=== PATIENT | female | born 1975 | race African-American/Black ===

== ENCOUNTER 2016-06-13 10:46 | Emergency (ER) | payer OTHER ==
[~2016-06-13] VITALS: Ht 147.3 cm; Wt 54.0 kg
[~2016-06-13 10:46] MED LIST: TYLENOL EXTRA500 MG ORAL
[2016-06-13] MEDS ORDERED: ASPIR 8181 MG ORAL (11:03)
[2016-06-13] MEDS ORDERED: ZANTAC150 MG ORAL (11:04)
[2016-06-13] MEDS ORDERED: OMEPRAZOLE10 M1 ORAL (11:04)
[2016-06-13] MEDS ORDERED: FLONASE ALLERG9.9 ML NS (11:04)
--- NOTE | 2016-06-13 11:23 | Emergency Room Report ---
History of Present Illness General Chief Complaint: Chest Pain Source: Patient Present Illness HPI Patient presents with complaints of cough and congestion Ongoing for the past several days she has noticed wheezing previously as well After the coughing and congestion she has noted anterior left upper chest pain Sounds to be related with the cough denies any pleurisy denies any abdominal pain Denies any fevers or chills denies recent travel Allergies: Coded Allergies: GABAPENTIN (Verified Allergy, Intermediate, 02/24/16) IBUPROFEN (Verified Allergy, Intermediate, 02/24/16) METRONIDAZOLE (Verified Allergy, Intermediate, 02/24/16) Patient History Past Medical History: see triage record Pertinent Family History: none Last Menstrual Period: on depo shot Now: No : 0 Para: 0 Reviewed Nursing Documentation: PMH: Agreed, PSxH: Agreed Review of Systems All Other Systems: negative except mentioned in HPI Physical Exam Vital Signs Date Time Temp Pulse Resp B/P Pulse Ox O2 Delivery O2 Flow Rate FiO2 06/13/16 10:57 98.1 74 18 124/82 100 Room Air Sp02 EP Interpretation: reviewed, normal General Appearance: well appearing, no apparent distress Head: normocephalic, atraumatic Eyes: bilateral eye EOMI, bilateral eye PERRL ENT: hearing grossly normal, normal pharynx, TMs + canals normal, uvula midline Neck: full range of motion, supple, no meningismus, no bony tend Respiratory: lungs clear, normal breath sounds, no rhonchi, no respiratory distress, no retraction, no accessory muscle use Cardiovascular #1: normal peripheral pulses, regular rate, rhythm, no edema, no gallop, no JVD, no murmur Gastrointestinal: normal bowel sounds, non tender, soft, no mass, no organomegaly, non-distended, no guarding, no hernia, no pulsatile mass, no rebound Genitourinary: no CVA tenderness Musculoskeletal: normal inspection Neurologic: oriented x3, responsive, insights strategist III-XII nml as tested, motor strength/ tone normal, sensory intact Psychiatric: mood/affect normal Skin: normal color, no rash, warm/dry, palpation normal Lymphatic: normal inspection, no adenopathy Medical Decision Making Diagnostic Impression: Primary Impression: Chest pain Additional Impression: URI (upper respiratory infection) ER Course Patient appears to have findings in line with URI symptoms Given her presentation imaging study was obtained along with breathing treatment she does feel significantly better after this At the time of disposition the patient also stated that she had noted some vaginal discharge previously She is sexually active Denies any fevers or chills I did recommend close followup with [facility] patient was covered for PID/ pathology And stable for close outpatient followup EKG Diagnostic Results Rate: normal Rhythm: NSR ST Segments: no acute changes Rhythm Strip Diag. Results EP Interpretation: yes Rate: 74 Rhythm: NSR, no PVC's, no ectopy Chest X-Ray Diagnostic Results EP Interpretation: Yes Findings: no consolidation, no effusion, no pneumothorax Number of Views: 1 Last Vital Signs Date Time Temp Pulse Resp B/P Pulse Ox O2 Delivery O2 Flow Rate FiO2 06/13/16 11:16 74 18 Room Air 06/13/16 10:57 98.1 124/82 100 Status: improved Disposition: HOME, SELF-CARE Condition: Improved Scripts Doxycycline Hyclate* (VIBRAMYCIN*) 100 Mg Capsule 100 MG ORAL EVERY 12 HOURS, #14 CAP 0 Refills Prov: TIMUR DAVILA D.O. 06/13/16 Promethazine HCl/Codeine (Prometh-Codein 6.25-10 mg/5 ml) 5 Ml Syrup 5 ML PO QHS for 5 Days, ML Prov: TIMUR DAVILA D.O. 06/13/16 Azithromycin* (ZITHROMAX*) 250 Mg Tablet 250 MG ORAL DAILY, #6 TAB 0 Refills Take two tablets by mouth today, then take one tablet by mouth daily for four days Prov: TIMUR DAVILA D.O. 06/13/16 Additional Instructions: Patient is provided with the discharge instructions notified to follow up with primary doctor in the next 2-3 days otherwise return to the er with any worsening symptoms. TIMUR DAVILA D.O. Jun 13, 2016 11:23
[2016-06-13] MEDS ORDERED: Albuterol ud Inhalation HHN ONE (11:30)
--- NOTE | 2016-06-13 12:11 | Diagnostic Imaging Report ---
Indication: Chest Pain Comparison: None A single view chest radiograph was obtained. Findings: Cardiomediastinal appearance is within normal limits for age. Pulmonary vascularity is appropriate. The diaphragmatic contour is smooth and costophrenic angles are sharp. No pleural effusions are identified. The bones are unremarkable. Impression: No acute findings
[2016-06-13] MEDS ORDERED: PROMETH-CODEIN 65 ML PO (12:24)
[2016-06-13] MEDS ORDERED: AZITHROMYCIN250 MG ORAL (12:24)
[2016-06-13 13:38] VITALS: BP 101/47
[2016-06-13 13:56] VITALS: BP 101/47
[2016-06-13] MEDS ORDERED: VIBRAMYCIN100 MG ORAL (14:00)
[2016-06-13] MEDS ORDERED: Lidocaine 1% MPF 10mg/ml 5ml ONE (14:08)
--- NOTE | 2016-07-26 08:29 | Cardiology Report ---
APPROVED REPORT EKG Measurement Heart [id number] Normal sinus rhythm Possible Left atrial enlargement Borderline ECG
== END 2016-06-13 14:13 | disposition home or self-care (01) ==
LOC: EMR 11:34
DX: R05 Cough (principal)
CPT/HCPCS: 71010; 93005; 94640; 94664; 96372; 99283; J0696

== ENCOUNTER 2016-12-05 18:26 | Emergency (ER) | payer OTHER ==
[~2016-12-05] VITALS: Ht 144.8 cm; Wt 55.8 kg
[~2016-12-05 18:26] MED LIST changes: +ASPIR 8181 MG ORAL; +AZITHROMYCIN250 MG ORAL; +FLONASE ALLERG9.9 ML NS; +OMEPRAZOLE10 M1 ORAL; +PROMETH-CODEIN 65 ML PO; +VIBRAMYCIN100 MG ORAL; +ZANTAC150 MG ORAL
[2016-12-05 18:38] VITALS: BP 140/87
--- NOTE | 2016-12-05 20:07 | Emergency Room Report ---
History of Present Illness General Chief Complaint: Upper Extremity Injury Source: Patient Present Illness HPI 41-year-old female presents to the emergency department complaining of 8/10 in severity lateral right elbow pain x2 days with mild swelling. Patient states she cannot all whether or not she hit her elbow on anything. Patient denies bruising erythema. Patient reports pain with full extension as well as clicking sensation. Patient denies open lesions. Patient denies nausea, vomiting, fevers, chills. Denies numbness tingling or loss of sensation or gross motor movements of the extremities, incontinence of bowel or bladder. Denies CP, Palpitations, LOC, AMS, dizziness, Changes in Vision, Sensation, paresthesias, or a sudden severe headache. Allergies: Coded Allergies: GABAPENTIN (Verified Allergy, Intermediate, 02/24/16) IBUPROFEN (Verified Allergy, Intermediate, 02/24/16) METRONIDAZOLE (Verified Allergy, Intermediate, 02/24/16) Patient History Past Medical History: see triage record Past Surgical History: none Pertinent Family History: none Last Menstrual Period: 11/03/2016 Now: No Immunizations: UTD Reviewed Nursing Documentation: PMH: Agreed, PSxH: Agreed Review of Systems All Other Systems: negative except mentioned in HPI Physical Exam Vital Signs Date Time Temp Pulse Resp B/P Pulse Ox O2 Delivery O2 Flow Rate FiO2 12/05/16 18:32 98.1 85 16 140/87 98 Room Air Sp02 EP Interpretation: reviewed, normal General Appearance: no apparent distress, alert, GCS 15, non-toxic Head: normocephalic, atraumatic Eyes: bilateral eye PERRL, bilateral eye normal inspection ENT: hearing grossly normal, normal pharynx, no angioedema, normal voice Neck: full range of motion, supple/symm/no masses Respiratory: lungs clear, normal breath sounds, speaking full sentences Cardiovascular #1: regular rate, rhythm, no edema, normal capillary refill Musculoskeletal: back normal, gait/station normal, normal range of motion, tender - TTP and swelling to lateral left elbow, no bruises, no erythema, no increased temperature to palpation, FROM with mild pain, no clicking palpated, no obvious deformity Neurologic: alert, oriented x3, responsive, motor strength/tone normal, sensory intact, speech normal Psychiatric: judgement/insight normal, memory normal, mood/affect normal Skin: normal color, no rash, warm/dry, well hydrated Medical Decision Making PA Attestation Dr. soto is my supervising Physician whom patient management has been discussed with. Diagnostic Impression: Primary Impression: Contusion Qualified Codes: S50.02XA - Contusion of left elbow, initial encounter Additional Impression: Elbow pain, left ER Course 41-year-old female presents to the emergency department complaining of 8/10 in severity lateral right elbow pain x2 days with mild swelling. Patient states she cannot all whether or not she hit her elbow on anything. Patient denies bruising erythema. Patient reports pain with full extension as well as clicking sensation. Patient denies open lesions. Patient denies nausea, vomiting, fevers, chills. Denies numbness tingling or loss of sensation or gross motor movements of the extremities, incontinence of bowel or bladder. Denies CP, Palpitations, LOC, AMS, dizziness, Changes in Vision, Sensation, paresthesias, or a sudden severe headache. Ddx considered but are not limited to Fracture, dislocation, contusion, Sprain/ Strain/Spasm, Epidural abscess, Neoplastic mets. Vital signs: are WNL, pt. is afebrile H&PE are most consistent with musculoskeletal injury will perform imaging to r/ o fractures/dislocations. ORDERS: - X-ray Left Elbow 3 views - negative for fx, Dislocation, or significant soft tissue injury, per preliminary read in ED by Dr. Mendoza - interpretation is scribed by PA. ED INTERVENTIONS: - Left arm Sling applied by civil laboratory technician. Pt. remains neurovascularly intact. DISCHARGE: At this time pt. is stable for d/c to home. Will provide printed patient care instructions, and any necessary prescriptions. Care plan and follow up instructions have been discussed with the patient prior to discharge. Last Vital Signs Date Time Temp Pulse Resp B/P Pulse Ox O2 Delivery O2 Flow Rate FiO2 12/05/16 18:38 98.1 16 140/87 98 Room Air 12/05/16 18:32 85 Disposition: HOME, SELF-CARE Condition: Stable Scripts Cyclobenzaprine Hcl* (FLEXERIL*) 10 Mg Tablet 10 MG ORAL THREE TIMES A DAY for 7 Days, #21 TAB Prov: Dina Mitchell P.A. 12/05/16 Naproxen* (NAPROXEN*) 500 Mg Tablet 500 MG ORAL TWICE A DAY, #20 TAB Prov: Dina Mitchell 12/05/16 Referrals: [facility],REFERRING (PCP) Patient Instructions: CONTUSION, Upper Extremity Additional Instructions: Take medications as directed. Follow up with a Primary Care Provider in 3-5 days, even if your symptoms have resolved. --Please review list of primary care clinics, if you do not already have a primary care provider Return sooner to ED if new symptoms occur, or current symptoms become worse. - Please note that this Emergency Department Report was dictated using [employer] records analyst technology software, occasionally this can lead to erroneous entry secondary to interpretation by the dictation equipment. Dina Mitchell Dec 05, 2016 20:07
[2016-12-05] MEDS ORDERED: CYCLOBENZAPRINE10 MG ORAL (20:20)
[2016-12-05] MEDS ORDERED: NAPROXEN500 M2 ORAL (20:20)
[2016-12-05 20:30] VITALS: BP 145/81
--- NOTE | 2016-12-06 09:24 | Diagnostic Imaging Report ---
Indications: Left elbow pain Technique: 3 views of the left elbow Findings: Comparison: None No fracture, dislocation, lytic destruction, periosteal reaction, joint space widening or effusion, surrounding soft tissue abnormality, or other acute changes demonstrated. No deformity, alignment abnormality, arthritic change, soft tissue calcification, or other chronic changes demonstrated. IMPRESSION: Negative left elbow series.
== END 2016-12-05 20:30 | disposition home or self-care (01) ==
LOC: EMR 19:00
DX: S50.02XA Contusion of left elbow, initial encounter (principal); X58.XXXA Exposure to other specified factors, initial encounter; Y92.9 Unspecified place or not applicable; Z88.6 Allergy status to analgesic agent; Z88.8 Allergy status to other drugs, medicaments and biological substances
CPT/HCPCS: 29240; 99284

== ENCOUNTER 2017-04-29 13:45 | Emergency (ER) | payer OTHER ==
[~2017-04-29] VITALS: Ht 144.8 cm; Wt 58.1 kg
[~2017-04-29 13:45] MED LIST changes: +CYCLOBENZAPRINE10 MG ORAL; +NAPROXEN500 M2 ORAL
[2017-04-29 14:16] VITALS: BP 117/82
[2017-04-29] MEDS ORDERED: OCUFLOX5 ML LEFT EYE (14:16)
[2017-04-29] MEDS ORDERED: KEFLEX500 MG ORAL (14:16)
[2017-04-29 14:20] VITALS: BP 117/82
--- NOTE | 2017-04-29 15:18 | Emergency Room Report ---
History of Present Illness General Chief Complaint: Eye Problems Source: Patient Present Illness HPI 41-year-old female presents ED for violation. Patient notes pain and swelling to the left lower eyelid. Started approximately one month ago. Was seen by PMD. Was prescribed antibiotics and states that symptoms overall improved but have persisted. Patient notes a nodular swelling to the inside of her left lower eyelid. Patient was given ophthalmology referral but has not yet seen the flake miller helper. Patient denies any pain but states that she noted some discharge from her lower eyelid a few days ago. Denies any photophobia or blurry vision. No other aggravating relieving factors. Denies any other associated symptoms Allergies: Coded Allergies: GABAPENTIN (Verified Allergy, Intermediate, 02/24/16) IBUPROFEN (Verified Allergy, Intermediate, 02/24/16) METRONIDAZOLE (Verified Allergy, Intermediate, 02/24/16) Patient History Past Medical History: none Past Surgical History: none Pertinent Family History: none Social History: Denies: smoking, alcohol use, drug use Last Menstrual Period: Depo Now: No Immunizations: UTD Reviewed Nursing Documentation: PMH: Agreed, PSxH: Agreed Review of Systems All Other Systems: negative except mentioned in HPI Physical Exam Vital Signs Date Time Temp Pulse Resp B/P (MAP) Pulse Ox O2 Delivery O2 Flow Rate FiO2 04/29/17 13:54 98.6 79 16 117/82 97 Room Air Sp02 EP Interpretation: reviewed, normal General Appearance: no apparent distress, alert, GCS 15, non-toxic Head: normocephalic Eyes: left eye lid inflammation - nodular swelling to inside of L lower eyelid , bilateral eye normal inspection, bilateral eye PERRL, bilateral eye EOMI ENT: hearing grossly normal, normal pharynx, no angioedema, normal voice Neck: normal inspection Respiratory: normal inspection Cardiovascular #1: normal inspection Gastrointestinal: normal inspection Rectal: deferred Genitourinary: no CVA tenderness Musculoskeletal: back normal Neurologic: alert, oriented x3, responsive, motor strength/tone normal, sensory intact, speech normal Psychiatric: normal inspection Skin: normal inspection Lymphatic: normal inspection Medical Decision Making Diagnostic Impression: Primary Impression: Eyelid cellulitis Qualified Codes: H00.036 - Abscess of eyelid left eye, unspecified eyelid ER Course Hospital Course 41-year-old female presents to ED with left eye pain/swelling Differential diagnoses include: conjunctivitis, traumatic iritis, foreign body, corneal abrasion Clinical course Patient placed on stretcher. After initial history, physical exam reveals a female in no acute distress. there is some L lower eyelid swelling. when eyelid inverted, there is a small nodular density. differential includes stye vs chalazion. given the persistent swelling, reported eye discharge, we will continue abx, recommend warm compresses. recommend optho for possible removal Diagnosis - eyelid cellulitis Stable and discharged to home with prescription for Ocuflox, keflex. warm compresses. given optho referral. Return to ED if symptoms recur or worsen Last Vital Signs Date Time Temp Pulse Resp B/P (MAP) Pulse Ox O2 Delivery O2 Flow Rate FiO2 04/29/17 14:20 98.6 73 16 117/82 97 Room Air Status: improved Disposition: HOME, SELF-CARE Condition: Stable Scripts Ofloxacin (OCUFLOX) 5 Ml Drops 1 DROP LEFT EYE QID for 7 Days, ML Prov: SHAR TANNER M.D. 04/29/17 Cephalexin* (KEFLEX*) 500 Mg Capsule 500 MG ORAL Q6H, #28 CAP 0 Refills Prov: SHAR TANNER M.D. 04/29/17 Referrals: Adair Mauricio MD [facility],REFERRING (PCP) KALEB SOMMERS Patient Instructions: Blepharitis, [id number], SHAR Fields M.D. Apr 29, 2017 15:18
== END 2017-04-29 14:25 | disposition home or self-care (01) ==
LOC: EMR 14:16
DX: H00.035 Abscess of left lower eyelid (principal); Z88.8 Allergy status to other drugs, medicaments and biological substances; Z88.6 Allergy status to analgesic agent
CPT/HCPCS: 99283

== ENCOUNTER 2017-07-08 14:42 | Emergency (ER) | payer OTHER ==
[~2017-07-08] VITALS: Ht 144.8 cm; Wt 58.5 kg
[~2017-07-08 14:42] MED LIST changes: +KEFLEX500 MG ORAL; +OCUFLOX5 ML LEFT EYE
[2017-07-08 15:01] VITALS: BP 132/88
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
[2017-07-08] MEDS ORDERED: Acetaminophen 500mg (ES) tab ORAL ONE (15:15)
[2017-07-08 16:37] LABS: APPEARANCE,URINE CLEAR; BASOPHILS % (AUTO) 0.8 % (0.0-2.0); BILIRUBIN, URINE NEGATIVE (NEGATIVE); COLOR,URINE PALE YELLOW; EOSINOPHILS % (AUTO) 1.3 % (0.0-3.0); GLUCOSE, URINE (UA) NEGATIVE (NEGATIVE); HEMATOCRIT 42.2 % (37.0-47.0); HEMOGLOBIN 14.8 G/DL (12.0-16.0); KETONES,URINE NEGATIVE (NEGATIVE); LEUKOCYTE ESTERASE ,URINE NEGATIVE (NEGATIVE); LYMPHOCYTES % (AUTO) 31.8 % (20.0-45.0); MEAN CORPUSCULAR VOLUME 97 FL (80-99); MONOCYTES % (AUTO) 5.4 % (1.0-10.0); NEUTROPHILS % (AUTO) 60.7 % (45.0-75.0); NITRITE,URINE NEGATIVE (NEGATIVE); PH,URINE 7 (4.5-8.0); PLATELET COUNT 254 K/UL (150-450); PROTEIN,URINE NEGATIVE (NEGATIVE); RED BLOOD COUNT 4.35 M/UL (4.20-5.40); RED CELL DISTRIBUTION WIDTH 11.4 % (11.6-14.8); UROBILINOGEN,URINE NORMAL MG/DL (0.0-1.0); WHITE BLOOD COUNT 17.3 K/UL (4.8-10.8)
[2017-07-08 16:50] LABS: ANION GAP 8 mmol/L (5-15); BLOOD UREA NITROGEN 9 mg/dL (7-18); CARBON DIOXIDE 27 MMOL/L (21-32); CHLORIDE 106 MMOL/L (98-107); CREATININE 0.8 MG/DL (0.55-1.30); POTASSIUM 3.1 MMOL/L (3.5-5.1); SODIUM 141 MMOL/L (136-145)
[2017-07-08 16:55] LABS: ALANINE AMINOTRANSFERASE 17 U/L (12-78); ALBUMIN 3.7 G/DL (3.4-5.0); ALBUMIN/GLOBULIN RATIO 1.1 (1.0-2.7); ALKALINE PHOSPHATASE 56 U/L (46-116); ASPARTATE AMINO TRANSFERASE 9 U/L (15-37); BILIRUBIN,TOTAL 0.2 MG/DL (0.2-1.0)
[2017-07-08] MEDS ORDERED: METHOCARBAMOL500 MG ORAL (18:04)
[2017-07-08] MEDS ORDERED: TYLENOL EXTRA500 MG ORAL (18:04)
[2017-07-08 18:40] VITALS: BP 145/84
--- NOTE | 2017-07-09 08:56 | Diagnostic Imaging Report ---
Indication: Back pain Technique: Continuous helical transaxial imaging of the lumbar spine was obtained from the lung bases to the pubic symphysis. No IV contrast was administered. Coronal 2-D reformats were also obtained. Study obtained in a Siemens sensation [address] Total Dose length Product (DLP): 345.[address] Dose Index Volume (CTDIvol): 12.84 mGy Comparison: None Findings: There is no evidence of an acute fracture or malalignment. Height and configuration of the vertebral bodies and intervertebral discs are within normal limits. The facets are unremarkable. There is no soft tissue swelling. Aortoiliac calcifications are present. Impression: Negative lumbar spine CT. Atherosclerotic disease [facility] has communicated the preliminary results to the Emergency Department. Their findings are largely concordant with this report. The CT scanner at [facility] is accredited by the [employer] and the scans are performed using dose optimization techniques as appropriate to a performed exam including Automatic Exposure control.
--- NOTE | 2017-07-09 09:02 | Diagnostic Imaging Report ---
Indication: Neck pain. Technique: Continuous helical imaging of the cervical spine was obtained transaxially from the skull base to the upper thoracic spine. 2-D coronal and sagittal reformatted images were obtained. Automatic Exposure Control was utilized. Total Dose length Product (DLP): 333.[address] Dose Index Volume (CTDIvol): 17.18 mGy Comparison: None Findings: There is no evidence of an acute fracture or malalignment. Atlantoaxial alignment appears normal. Height and configuration of the vertebral bodies and intervertebral discs are within normal limits. Uncovertebral joints and facets are unremarkable. There is no soft tissue swelling. Impression: Negative cervical spine CT [facility] has communicated the preliminary results to the Emergency Department. Their findings are largely concordant with this report. The CT scanner at [facility] is accredited by the [employer] and the scans are performed using dose optimization techniques as appropriate to a performed exam including Automatic Exposure control.
== END 2017-07-08 19:30 | disposition home or self-care (01) ==
LOC: EMR 15:15
DX: M54.2 Cervicalgia (principal); M54.5 Low back pain; V43.52XA Car driver injured in collision with other type car in traffic accident, initial encounter; Y92.410 Unspecified street and highway as the place of occurrence of the external cause; Z88.8 Allergy status to other drugs, medicaments and biological substances; Z88.6 Allergy status to analgesic agent
CPT/HCPCS: 36415; 72125; 72131; 80053; 81003; 81025; 85025; 99284

== ENCOUNTER 2017-09-08 19:07 | Emergency (ER) | payer OTHER ==
[~2017-09-08] VITALS: Ht 144.8 cm; Wt 59.0 kg
[~2017-09-08 19:07] MED LIST changes: +METHOCARBAMOL500 MG ORAL
[2017-09-08] MEDS ORDERED: FERROUS SULFAT325 MG ORAL (19:19)
[2017-09-08 19:20] VITALS: BP 139/85
[2017-09-08] MEDS ORDERED: Tetanus/Diptheria/Pertussis Vaccine 0.5ml Syr IM ONE (19:30)
[2017-09-08 19:45] VITALS: BP 139/85
--- NOTE | 2017-09-08 19:59 | Emergency Room Report ---
History of Present Illness General Chief Complaint: Laceration Source: Patient Present Illness HPI The patient is a 42-year-old female presenting for left index finger laceration. She states that this occurred approximately 15 minutes prior to arrival. She was in the kitchen and her next prescription and pierced the left index finger. She noticed immediate bleeding. She cleaned the area and applied dressing. Pain is now a 4/10 dull ache and does not radiate. She denies any numbness or tingling. Last tetanus shot unknown Allergies: Coded Allergies: GABAPENTIN (Verified Allergy, Intermediate, 02/24/16) IBUPROFEN (Verified Allergy, Intermediate, 02/24/16) METRONIDAZOLE (Verified Allergy, Intermediate, 02/24/16) Patient History Past Medical History: see triage record Pertinent Family History: none Now: No Reviewed Nursing Documentation: PMH: Agreed; PSxH: Agreed Nursing Documentation-PMH Past Medical History: No History, Except For Review of Systems All Other Systems: negative except mentioned in HPI Physical Exam Vital Signs Date Time Temp Pulse Resp B/P (MAP) Pulse Ox O2 Delivery O2 Flow Rate FiO2 09/08/17 19:10 99.2 89 16 139/85 99 Room Air 99.1 Sp02 EP Interpretation: reviewed, normal General Appearance: no apparent distress, alert, GCS 15, non-toxic Head: normocephalic, atraumatic Eyes: bilateral eye normal inspection, bilateral eye PERRL Musculoskeletal: back normal, gait/station normal, normal range of motion Neurologic: alert, oriented x3, responsive, motor strength/tone normal, sensory intact, speech normal Psychiatric: judgement/insight normal, memory normal, mood/affect normal, no suicidal/homicidal ideation Skin: laceration - 1cm L 2nd digit distal to DIPJ palmar surface Lymphatic: no adenopathy Procedures Laceration/Wound Repair Laceration/Wound Repair : Consent: Verbal Wound Location: upper extremity Wound's Depth, Shape: superficial, linear Wound Length (cm): 1 Wound Explored: clean Irrigated w/ Saline (ccs): 100 Betadine Prep?: Yes Volume Anesthetic (ccs): 0 Wound Repaired With: Dermabond Sterile Dressing Applied?: No Splint Applied?: No Sling Applied?: No Patient Tolerated: Well Complications: None Medical Decision Making PA Attestation Dr. Arcos is my supervising physician. Patient management was discussed with my supervising physician Diagnostic Impression: Primary Impression: Finger laceration Qualified Codes: S61.211A - Laceration without foreign body of left index finger without damage to nail, initial encounter ER Course The patient is a 42-year-old female presenting for left index finger laceration Ddx considered include but not limited to fracture, tendon/ligament injury, avulsion, nerve damage PE: NAD L index finger has 1cm linear superficial laceration. Distal to DIPJ. No bleeding. SILT. The wound is cleaned and Dermabond is applied. Patient tolerated well. She is given return precautions. She will keep the area clean and dry Last Vital Signs Date Time Temp Pulse Resp B/P (MAP) Pulse Ox O2 Delivery O2 Flow Rate FiO2 09/08/17 19:45 99.1 16 139/85 99 Room Air 99.1 09/08/17 19:10 89 Status: improved Disposition: HOME, SELF-CARE Condition: Improved Patient Instructions: Nonsutured Laceration Care Additional Instructions: I discussed my findings with the patient. All questions and concerns have been answered. Treatment and medication compliance have been addressed. I advised the patient that they need to follow up with PMD in 3-5 days. Return to ED if symptoms worsen, new symptoms arise, or if needed for any reason. Patient verbalized understanding of discharge instructions. HUGO COBB Sep 08, 2017 19:59
== END 2017-09-08 19:45 | disposition home or self-care (01) ==
LOC: EMR 19:20
DX: S61.211A Laceration without foreign body of left index finger without damage to nail, initial encounter (principal); Z88.8 Allergy status to other drugs, medicaments and biological substances; Z23 Encounter for immunization; W26.0XXA Contact with knife, initial encounter; Y92.000 Kitchen of unspecified non-institutional (private) residence as the place of occurrence of the external cause
CPT/HCPCS: 12001; 90471; 90715; 99283; Z7502

== ENCOUNTER 2018-12-29 12:33 | Emergency (ER) | payer OTHER ==
[~2018-12-29] VITALS: Ht 144.8 cm; Wt 59.4 kg
[~2018-12-29 12:33] MED LIST changes: +FERROUS SULFAT325 MG ORAL
[2018-12-29 12:46] VITALS: BP 117/89
--- NOTE | 2018-12-29 12:50 | NUR ---
ED Nurse Note: patient walked into ED c/o dysuria for 1 day. patient reports frequent urination for the past few days. patient is alert awake x4 ambulatory, breathing unlabored and even.
--- NOTE | 2018-12-29 12:59 | NUR ---
ED Nurse Note: urine sent to lab
--- NOTE | 2018-12-29 13:03 | Emergency Room Report ---
History of Present Illness General Chief Complaint: Female Urogenital Problems Present Illness HPI 43-year-old female with no significant past medical history here complaining of 5 days of urinary frequency and dysuria. Denies any vaginal discharge or recent sexual encounter. Denies opiate pain, flank pain, fever and chills, nausea vomiting. Has not taken any medication for symptoms. Denies chest pain, , no other associated symptoms last menstrual period was regular Allergies: Coded Allergies: GABAPENTIN (Verified Allergy, Intermediate, 02/24/16) IBUPROFEN (Verified Allergy, Intermediate, 02/24/16) METRONIDAZOLE (Verified Allergy, Intermediate, 02/24/16) Patient History Past Medical History: see triage record Past Surgical History: unable to obtain Pertinent Family History: none Last Menstrual Period: today Now: No Immunizations: UTD Reviewed Nursing Documentation: PMH: Agreed; PSxH: Agreed Review of Systems All Other Systems: negative except mentioned in HPI Physical Exam Vital Signs Date Time Temp Pulse Resp B/P (MAP) Pulse Ox O2 Delivery O2 Flow Rate FiO2 12/29/18 12:46 97.9 97 16 117/89 (98) 97 Room Air Sp02 EP Interpretation: reviewed, normal General Appearance: normal inspection, well appearing, no apparent distress, alert Head: normocephalic, atraumatic Eyes: bilateral eye normal inspection, bilateral eye PERRL ENT: normal ENT inspection, normal pharynx Neck: normal inspection, full range of motion, supple, thyroid normal Respiratory: normal inspection, chest non-tender, lungs clear, normal breath sounds, no rhonchi, no wheezing Cardiovascular #1: normal inspection, normal peripheral pulses, regular rate, rhythm, no edema, no murmur Gastrointestinal: normal inspection, non tender, soft, no mass Genitourinary: no CVA tenderness Musculoskeletal: normal inspection, back normal, digits/nails normal Neurologic: normal inspection, alert, oriented x3, responsive Psychiatric: normal inspection, judgement/insight normal Skin: no rash Lymphatic: normal inspection, no adenopathy Medical Decision Making PA Attestation All my diagnosis and treatment plans were reviewed ad discussed with my supervising physician Dr. Arcos Diagnostic Impression: Primary Impression: UTI (urinary tract infection) ER Course 43-year-old female with no significant past medical history here complaining of 5 days of urinary frequency and dysuria. Denies any vaginal discharge or recent sexual encounter. Denies opiate pain, flank pain, fever and chills, nausea vomiting. Has not taken any medication for symptoms. Denies chest pain, , no other associated symptoms last menstrual period was regular Ddx considered but are not limited to: UTI, pylonephritis, urinary incontinence , prolapsed bladder Vital signs: are WNL, pt. is afebrile H&PE are most consistent with: UTI ORDERS: UA, urine test, Macrobid, Pyridium ED INTERVENTIONS: None required at this time. DISCHARGE: At this time pt. is stable for d/c to home. Will provide printed patient care instructions, and any necessary prescriptions. Care plan and follow up instructions have been discussed with the patient prior to discharge. Last Vital Signs Date Time Temp Pulse Resp B/P (MAP) Pulse Ox O2 Delivery O2 Flow Rate FiO2 12/29/18 12:46 97.9 97 16 117/89 (98) 97 Room Air Disposition: HOME, SELF-CARE Condition: Stable Scripts Phenazopyridine Hcl* (PYRIDIUM*) 200 Mg Tablet 200 MG ORAL THREE TIMES A DAY for 2 Days, #6 TAB 0 Refills Prov: Pacheco Albarran 12/29/18 Nitrofurantoin Monohyd/M-Cryst* (MACROBID 100 MG*) 100 Mg Capsule 100 MG ORAL EVERY 12 HOURS for 7 Days, #14 CAP Prov: Pacheco Albarran 12/29/18 Patient Instructions: Urinary Tract Infection Additional Instructions: Take medication as directed follow-up with your primary care provider increase oral hydration. Pacheco Albarran Dec 29, 2018 13:03
[2018-12-29 13:09] LABS: APPEARANCE,URINE CLEAR; BILIRUBIN, URINE NEGATIVE (NEGATIVE); COLOR,URINE PALE YELLOW; GLUCOSE, URINE (UA) NEGATIVE (NEGATIVE); KETONES,URINE NEGATIVE (NEGATIVE); LEUKOCYTE ESTERASE ,URINE 3+ (NEGATIVE); NITRITE,URINE NEGATIVE (NEGATIVE); PH,URINE 6.5 (4.5-8.0); PROTEIN,URINE 1+ (NEGATIVE); UROBILINOGEN,URINE NORMAL MG/DL (0.0-1.0)
[2018-12-29] MEDS ORDERED: NITROFURANTOIN100 M2 ORAL (13:28)
[2018-12-29] MEDS ORDERED: PHENAZOPYRIDIN200 MG ORAL (13:28)
[2018-12-29 13:35] VITALS: BP 117/89
--- NOTE | 2018-12-29 13:37 | NUR ---
ER DISCHARGE NOTE: Patient is cleared to be discharged per LUIS GOMEZ, pt is aox4, on room air, with stable vital signs. pt was given dc and prescription instructions, pt was able to verbalize understanding, pt id band removed without complications. pt is able to ambulate with steady gait. pt took all belongings.
== END 2018-12-29 13:36 | disposition home or self-care (01) ==
LOC: EMR 13:04
DX: N39.0 Urinary tract infection, site not specified (principal); Z88.8 Allergy status to other drugs, medicaments and biological substances
CPT/HCPCS: 81001; 81025; 87086; 87181; 99283